=== PATIENT | female | born 1975 | race Caucasian/White ===

== ENCOUNTER 2020-04-29 14:05 | Emergency (ER) | payer BC ==
[2020-04-29] MEDS ORDERED: Sodium Chloride 0.9% 1,000 ML IV ONE (14:25)
[2020-04-29] MEDS ORDERED: Sodium Chloride 0.9% 10 ML Syringe FLUSH PRN (14:26)
[2020-04-29] MEDS ORDERED: HYDROmorphone 0.5 MG/0.5 ML Syringe IVPUSH ONE (14:26)
[2020-04-29] MEDS ORDERED: Ondansetron 4 MG/2 ML SDV IVPUSH ONE (14:26)
--- NOTE | 2020-04-29 14:38 | EDM.PDOC ---
<Gela Ledezma M - Last Filed: 04/29/20 15:21> ED HPI GENERAL MEDICAL PROBLEM - General Chief Complaint: Flank Pain Stated Complaint: RIGHT SIDE AND BACK PAIN Time Seen by Provider: 04/29/20 14:23 Source of Information: Reports: Patient, RN, RN Notes Reviewed History Limitations: Reports: No Limitations - History of Present Illness INITIAL COMMENTS - FREE TEXT/NARRATIVE: Pt here with RUQ and R flank pain. Pt had these symptoms that lasted one day last week but went away. Pt is here today based on RUQ pain and R flank pain that radiates to back. Pt feels nausea. No SOB, vomiting, fevers, night sweats or chills. Denies urgency and frequency. Onset: Sudden Onset Date: 04/29/20 Right Flank Pain Score (Numeric/FACES): 9 - Related Data Allergies Allergy/AdvReac Type Severity Reaction Status Date / Time No Known Allergies Allergy Verified 04/29/20 14:22 Home Meds: Home Meds Sertraline [Zoloft] 100 mg PO DAILY 04/29/20 [History] Social & Family History - Tobacco Use Tobacco Use Status *Q: Never Tobacco User - Caffeine Use Caffeine Use: Reports: Coffee - Recreational Drug Use Recreational Drug Use: No ED ROS GENERAL - Review of Systems Review Of Systems: See Below Constitutional: Reports: No Symptoms HEENT: Reports: No Symptoms Respiratory: Reports: No Symptoms Cardiovascular: Reports: No Symptoms Endocrine: Reports: No Symptoms GI/Abdominal: Reports: Abdominal Pain, Nausea : Reports: Flank Pain (Right ) Musculoskeletal: Reports: No Symptoms Skin: Reports: No Symptoms Neurological: Reports: No Symptoms Psychiatric: Reports: No Symptoms Hematologic/Lymphatic: Reports: No Symptoms Immunologic: Reports: No Symptoms ED EXAM, RENAL/ - Physical Exam Exam: See Below Exam Limited By: No Limitations General Appearance: Alert, WD/WN, Moderate Distress Head: Normocephalic Neck: Normal Inspection, Non-Tender, Full Range of Motion Respiratory/Chest: No Respiratory Distress, Lungs Clear, Normal Breath Sounds Cardiovascular: Regular Rate, Rhythm GI/Abdominal: Normal Bowel Sounds, Soft, Tender (RUQ) (Female) Exam: Deferred Rectal (Female) Exam: Deferred Neurological: Alert, Oriented, CN II-XII Intact Psychiatric: Normal Affect Course - Re-Assessments/Exams Free Text/Narrative Re-Assessment/Exam: 04/29/20 15:21 CBC, CMP, Lactic look good. Departure - Departure Disposition: DC/Tfer to Acute Hospital 02 Clinical Impression: Ureteric colic, Right nephrolithiasis - Discharge Information Referrals: Roxanna Anderson CNM [Primary Care Provider] - Forms: ED Department Discharge Sepsis Event Note (ED) - Evaluation Sepsis Screening Result: No Definite Risk <Jay Coombs - Last Filed: 04/29/20 18:17> Course - Vital Signs Last Recorded V/S: Last Vital Signs Temp 97.5 F 04/29/20 14:20 Pulse 94 04/29/20 17:37 Resp 16 04/29/20 17:37 BP 212/106 H 04/29/20 17:37 Pulse Ox 100 04/29/20 17:37 - Orders/Labs/Meds Orders: Active Orders 24 hr Category Date Time Status Peripheral IV Insertion Adult [OM.PC] Routine Oth 04/29/20 14:26 Ordered Labs: Laboratory Tests 04/29/20 04/29/20 04/29/20 Range/Units 14:47 14:47 14:47 WBC 10.6 (4.5-11.0) K/uL RBC 4.88 (3.30-5.50) M/uL Hgb 13.9 (12.0-15.0) g/dL Hct 41.7 (36.0-48.0) % MCV 86 (80-98) fL MCH 29 (27-31) pg MCHC 33 (32-36) % Plt Count 272 (150-400) K/uL Neut % (Auto) 79 H (36-66) % Lymph % (Auto) 14 L (24-44) % [place] % (Auto) 6 (2-6) % Eos % (Auto) 1 L (2-4) % Baso % (Auto) 0 (0-1) % Sodium 137 L (140-148) mmol/L Potassium 3.7 (3.6-5.2) mmol/L Chloride 101 (100-108) mmol/L Carbon Dioxide 25 (21-32) mmol/L Anion Gap 14.7 H (5.0-14.0) mmol/L BUN 14 (7-18) mg/dL Creatinine 1.3 H (0.6-1.0) mg/dL Est Cr Clr Drug Dosing 49.69 mL/min Estimated GFR (MDRD) 44 L (>60) Glucose 130 H (74-106) mg/dL Lactic Acid 1.9 (0.4-2.0) mmol/L Calcium 9.1 (8.5-10.1) mg/dL Total Bilirubin 0.4 (0.2-1.0) mg/dL AST 15 (15-37) U/L ALT 23 (12-78) U/L Alkaline Phosphatase 79 (46-116) U/L Total Protein 7.9 (6.4-8.2) g/dL Albumin 3.7 (3.4-5.0) g/dL Globulin 4.2 H (2.3-3.5) g/dL Albumin/Globulin Ratio 0.9 L (1.2-2.2) HCG, Qual Urine Color (YELLOW) Urine Appearance (CLEAR) Urine pH (5.0-8.0) Ur Specific [place] (1.008-1.030) Urine Protein (NEGATIVE) mg/dL Urine Glucose (UA) (NEGATIVE) mg/dL Urine Ketones (NEGATIVE) mg/dL Urine Occult Blood (NEGATIVE) Urine Nitrite (NEGATIVE) Urine Bilirubin (NEGATIVE) Urine Urobilinogen (0.2-1.0) EU/dL Ur Leukocyte Esterase (NEGATIVE) Urine RBC (0-5) Urine WBC (0-5) Ur Epithelial Cells Amorphous Sediment Urine Bacteria Urine Mucus 04/29/20 04/29/20 Range/Units 14:47 16:48 WBC (4.5-11.0) K/uL RBC (3.30-5.50) M/uL Hgb (12.0-15.0) g/dL Hct (36.0-48.0) % MCV (80-98) fL MCH (27-31) pg MCHC (32-36) % Plt Count (150-400) K/uL Neut % (Auto) (36-66) % Lymph % (Auto) (24-44) % [place] % (Auto) (2-6) % Eos % (Auto) (2-4) % Baso % (Auto) (0-1) % Sodium (140-148) mmol/L Potassium (3.6-5.2) mmol/L Chloride (100-108) mmol/L Carbon Dioxide (21-32) mmol/L Anion Gap (5.0-14.0) mmol/L BUN (7-18) mg/dL Creatinine (0.6-1.0) mg/dL Est Cr Clr Drug Dosing mL/min Estimated GFR (MDRD) (>60) Glucose (74-106) mg/dL Lactic Acid (0.4-2.0) mmol/L Calcium (8.5-10.1) mg/dL Total Bilirubin (0.2-1.0) mg/dL AST (15-37) U/L ALT (12-78) U/L Alkaline Phosphatase (46-116) U/L Total Protein (6.4-8.2) g/dL Albumin (3.4-5.0) g/dL Globulin (2.3-3.5) g/dL Albumin/Globulin Ratio (1.2-2.2) HCG, Qual Negative Urine Color Yellow (YELLOW) Urine Appearance Slightly cloudy A (CLEAR) Urine pH 6.0 (5.0-8.0) Ur Specific [place] 1.025 (1.008-1.030) Urine Protein Negative (NEGATIVE) mg/dL Urine Glucose (UA) Negative (NEGATIVE) mg/dL Urine Ketones Negative (NEGATIVE) mg/dL Urine Occult Blood Moderate H (NEGATIVE) Urine Nitrite Negative (NEGATIVE) Urine Bilirubin Negative (NEGATIVE) Urine Urobilinogen 0.2 (0.2-1.0) EU/dL Ur Leukocyte Esterase Negative (NEGATIVE) Urine RBC 30-40 H (0-5) Urine WBC Not seen (0-5) Ur Epithelial Cells Rare Amorphous Sediment Not seen Urine Bacteria Few Urine Mucus Rare Meds: Medications Discontinued Medications Generic Name Dose Route Start Last Admin Trade Name Freq PRN Reason Stop Dose Admin Fentanyl 100 mcg 04/29/20 15:59 04/29/20 16:07 Sublimaze IVPUSH 04/29/20 16:00 100 mcg ONETIME ONE Administration Hydromorphone HCl 0.5 mg 04/29/20 14:26 04/29/20 14:36 Dilaudid IVPUSH 04/29/20 14:27 0.5 mg ONETIME ONE Administration Sodium Chloride 1,000 mls @ 999 mls/hr 04/29/20 14:25 04/29/20 14:53 Normal Saline IV 04/29/20 15:25 999 mls/hr .BOLUS ONE Administration Ketorolac Tromethamine 30 mg 04/29/20 14:52 04/29/20 14:56 Toradol IVPUSH 04/29/20 14:53 30 mg ONETIME ONE Administration Ondansetron HCl 4 mg 04/29/20 14:26 04/29/20 14:35 Zofran IVPUSH 04/29/20 14:27 4 mg ONETIME ONE Administration Sodium Chloride 10 ml 04/29/20 14:26 04/29/20 14:35 Saline Flush FLUSH 10 ml ASDIRECTED PRN Administration Keep Vein Open - Re-Assessments/Exams Free Text/Narrative Re-Assessment/Exam: 04/29/20 18:16 IMPRESSION: Mild right obstructive uropathy due to a 9 mm calculus at the right UPJ. A 5 mm nonobstructive left renal calcification. A 3.6 cm ovoid isodense structure in the lower uterine segment endometrium or subendometrial region. A 3.1 cm right adnexal low-density structure. Correlate with pelvic sonography and gynecological evaluation. Above CT findings, this correlated with an elevated creatinine of 1.3 and a decreased GFR of 44. UA showed RBCs but no evidence of inflammation or infect ion. Findings were discussed with the hospitalist service at [facility] where there is urological interventional capabilities and they agreed the patient should be transferred for admission. An additional dose of fentanyl was given in addition to 30 mg of IV Dilaudid and 50 mcg of fentanyl earlier. Departure - Departure Time of Disposition: 17:59 Sepsis Event Note (ED) - Focused Exam Vital Signs: Vital Signs Temp Pulse Resp BP Pulse Ox 04/29/20 17:37 94 16 212/106 H 100 04/29/20 14:29 91 18 203/95 H 97 04/29/20 14:20 97.5 F 89 18 179/95 H 100 Attestation - Student - Attestation Statement Attestation Statement: I personally performed or re-performed the physical examination and medical decision making. I have verified all student documentation or findings, including history, physical exam and/or medical decision making.
[2020-04-29] MEDS ORDERED: Ketorolac 30 MG/ML SDV IVPUSH ONE (14:52)
--- NOTE | 2020-04-29 15:57 | CRLCT ---
INDICATION: Right flank pain TECHNIQUE: CT abdomen and pelvis without contrast. COMPARISON: None available FINDINGS: Lower chest: Unremarkable. Liver: The superior hepatic dome is not imaged. Otherwise unremarkable. Spleen: Unremarkable. Pancreas: Unremarkable. Gallbladder and bile ducts: Apparent gallbladder sludge. Adrenal glands: Unremarkable. Kidneys: Mild right hydronephrosis with a 9 x 8 mm calculus at the right UPJ. No left hydronephrosis. A 5 mm nonobstructive left renal lower pole calcification. GI tract: Unremarkable. Appendix is normal. Vascular structures: Unremarkable. Lymph nodes: Unremarkable. Miscellaneous: No free air or significant free fluid. A very small fat containing umbilical hernia. Pelvic Organs: An apparent 3.6 x 2.0 x 1.5 cm ovoid isodense structure in the region of the lower uterine segment endometrium or subendometrial region on image 185 of series 2. A 3.1 x 2.5 x 2.7 cm right adnexal low-density structure. A partially contracted bladder. A punctate calcification along the anterior bladder wall. Bones: Unremarkable for age. IMPRESSION: Mild right obstructive uropathy due to a 9 mm calculus at the right UPJ. A 5 mm nonobstructive left renal calcification. A 3.6 cm ovoid isodense structure in the lower uterine segment endometrium or subendometrial region. A 3.1 cm right adnexal low-density structure. Correlate with pelvic sonography and gynecological evaluation. Dictated by Cristino Nava MD @ 04/29/2020 3:55:21 PM Please note that all CT scans at this facility use dose modulation, iterative reconstruction, and/or weight-based dosing when appropriate to reduce radiation dose to as low as reasonably achievable. Dictated by: Cristino Nava MD @ 04/29/2020 15:55:34 (Electronically Signed)
[2020-04-29] MEDS ORDERED: fentaNYL 100 MCG/2 ML SDV IVPUSH ONE (15:59)
== END 2020-04-29 17:59 ==
LOC: JP.ED 14:05
DX: N13.2 Hydronephrosis with renal and ureteral calculous obstruction (principal); Z79.899 Other long term (current) drug therapy
CPT/HCPCS: 36415; 74176; 80053; 81001; 83605; 84703; 85025; 96374; 96375; 99285; J1170; J1885; J2405; J3010; J7040